=== PATIENT | female | born 1970 | race Caucasian/White ===

== ENCOUNTER → 2020-07-03 16:29 | Outpatient (CLI) | payer OTHER, MEDICAID, SELFPAY ==
[2020-07-03 17:38] LABS: Cancer Antigen 125 10.8 U/mL (0-35)
[2020-07-05 13:37] LABS: Human Epididymis Prot 4 58.9 pmol/L (0.0-63.6)
== END ==
PROVIDERS: PCP Nurse Practitioner Family; Referring Provider Obstetrics & Gynecology; Visit Provider Obstetrics & Gynecology
DX: N83.292 Other ovarian cyst, left side (principal)
CPT/HCPCS: 36415; 86304; 86305

== ENCOUNTER 2020-08-27 08:36 | Day surgery (SDC) | payer OTHER, MEDICAID, SELFPAY ==
[2020-08-21 15:23] VITALS: BMI 29.8
[2020-08-27] VITALS (8 sets, daily range): BP systolic 124–139; BP diastolic 80–92; PULSE 72–101; RESP 11–19; TEMP 35.8–36.9; O2SAT 2–97; BMI 29.2
--- NOTE | 2020-08-27 | PATH_ITS ---
[facility] Accession Number: [id number] . 01 Material submitted: . uterus - UTERUS,BILATERAL FALLOPIAN TUBES AND OVARIES . 02 Diagnosis: Uterus, Bilateral Fallopian Tubes, And Ovaries, Supracervical Hysterectomy And Bilateral Salpingo-oophorectomy: Proliferative endometrium with features of endometrial polyp. Adenomyosis. Leiomyomata, up to 0.5 cm in greatest dimension. Ovary with benign corpus luteum cysts. Contralateral ovary with no diagnostic abnormality. Bilateral fimbriated fallopian tubes with simple benign paratubal cysts. No evidence of malignancy. . . . [facility] 08/29/2020 1445 Local . 02 Electronically signed: . Otoniel Michael MD, PhD, Pathologist NPI- [id number] . 01 Gross description: . Received in formalin, labeled uterus, tubes and ovaries (bilateral), and consists of a 104-gram morcellated uterus and detached bilateral fallopian tubes and ovaries weighing 104 grams and measuring 12.0 x 9.0 x 5.5 cm in aggregate. The serosa is jenkins-pink and smooth. A cervix is not identified. The endometrium is jenkins-pink and glistening measuring 0.1 cm in thickness. The myometrium is jenkins-pink and trabeculated. There are two jenkins-white whorled leiomyomata measuring 0.2 and 0.5 cm. No areas of necrosis, hemorrhage or cystic degeneration are identified. The ovaries measuring 3.0 x 2.0 x 1.8 cm and 3.2 x 2.6 x 1.2 cm. The external surfaces are jenkins and cerebriform. Sectioning reveals a jenkins-pink ovarian stroma. One ovary has three smooth-walled cysts ranging from 0.2 to 1.0 cm. No papillary excrescences are identified. The fallopian tubes average 3.5 cm in length by 0.5 cm in diameter. The serosa is pink-purple and smooth with multiple paratubal cysts ranging from 0.1 to 0.6 cm. Sectioning reveals a jenkins mucosa and a pinpoint to stellate lumen measuring up to 0.2 cm in diameter. Computer Applications Engineer sections are submitted. . A1-A12: endometrium, entirely submitted (with roofing sales representative serosa in A12). A13: leiomyomata. A14-A15: roofing sales representative smaller ovary with cysts. A16: fallopian tube attached to a cystic ovary, central cross-sections and bisected fimbria. A17: roofing sales representative sections of larger ovary. A18: fallopian tube attached to larger ovary, central cross-sections and bisected fimbria. (EA:[id number]) /MRV 08/28/2020 1400 Local . 02 Pathologist provided ICD-10: N92.0, N83.10, N80.0, D25.9 . 02 CPT . 321903 Performed at: [facility] [address] [id number] MD Geovani Pereira MD Phone: [phone] Performed at: 02 [facility] [address] [place], [place] [id number] MD Lizy Chau MD Phone: [phone]
--- NOTE | 2020-08-27 08:59 | PM.PREOP ---
Pre-operative Note COVID-19 COVID-19 status: Negative Result date/Date tested (Pos, Neg/Pending): 08/24/20 Interval Note History & Physical reviewed/Exam performed by Physician: Yes Changes to H&P: No H&P completed within 30 days and has changed as indicated here:: 08/21/20
[2020-08-27] MEDS: LACTATED RINGERS 1,000 ML 42 ML IV ×2 (09:06→10:51)
--- NOTE | 2020-08-27 09:14 | SUR.PREOP ---
Pt able to show me her negative covid test taken 08/24/20 at [facility] on her cell phone.
[2020-08-27] MEDS: CEFAZOLIN 2 GM/100 ML FROZ.PIGGY IV (09:50)
--- NOTE | 2020-08-27 10:31 | SUR.OPER ---
Lithotomy on padded OR bed. [place] Pad Positioner under torso. Head on pillow, arms padded and tucked at sides. Legs secured in padded yellow fins stirrups.
[2020-08-27] MEDS: BUPIVACAINE 0.5% W/ EPI (PF) 30 ML VIAL INJ (10:37)
[2020-08-27] MEDS: ROPIVACAINE 0.2% PF 2 MG/ML 10ML AMP 20 ML INJ (10:52)
--- NOTE | 2020-08-27 11:26 | PM.GYNOP.1 ---
Operative Date/Time/Diagnoses Date of procedure: 08/27/20 Time of procedure: 11:26 Pre-op diagnosis: Menorrhagia Adenomyosis Complex ovarian cyst Family history of uterine and ovarian cancer Anemia requiring iron infusions Post-op diagnosis: same Procedure & Clinicians Procedure: Procedures Operation Date: 08/27/20 09:45 Actual Procedures Side Surgeon p Laparoscopic Supracervical Hysterectomy W/ Bilateral [place]-oohphorectomy. Remove labial skin tag. Martha Goodman MD Indications: Menorrhagia Adenomyosis Anemia requiring iron infusions Family history of uterine and ovarian cancer Surgeon: Martha Goodman Guidance Services Coordinator: Floresita Cunha Anesthesia Type: General and Local Operative Notes Findings: Ten week size anteverted uterus Normal tubes and ovaries Normal liver and gallbladder Normal appendix Adenomyosis of the uterus Closure Type: primary Specimen(s): left tube & ovary, right tube & ovary and uterus Applied: catheter (Removed at the end of the case) Estimated blood loss (mL): 50 Blood products transfused: none Procedure in detail: The patient was taken to the operating room where she was placed in the dorsal supine position. After adequate general endotracheal anesthesia was achieved, she was placed in the dorsal lithotomy position, and prepped and draped in the usual sterile fashion. A timeout was performed. A bivalve speculum was placed into the vagina and the anterior lip of the cervix grasped with a single-tooth tenaculum. The cervical os was sequentially dilated until the ZUMI uterine manipulator could pass easily into the endometrial cavity. The single-tooth tenaculum was removed from the anterior lip of the cervix, and the bivalve speculum was removed from the vagina. Attention was then turned to the abdomen where 6 mL of half percent Marcaine with epinephrine were injected in the umbilical fold. A 5 mm incision was made. The veress needle was placed into the peritoneal cavity, and its placement confirmed by aspiration and drop test. The veress needle was removed. A 5 mm trocar was placed without difficulty. 2 other incisions were made midway between the pubic symphysis and umbilicus after 5 mL of half percent Marcaine with epinephrine were injected. These were 5 mm incisions. Two, 5 mm trochars were placed under direct visualization. The right tube and ovary were grasped with an atraumatic grasper. Using the plasma kinetic with settings of 40 W the mesosalpinx was cauterized and cut all the way down to the cornua of the uterus. The cornua of the uterus was then grasped with an atraumatic grasper. The utero-ovarian ligaments were cauterized and cut. The round ligament and broad ligament were cauterized and cut with plasma kinetic. Hemostasis was achieved. The bladder flap was created using the plasma kinetic with cautery and cut group home across. The uterine arteries on the right side were extensively cauterized with plasma kinetic. All of this was repeated on the left side. The remainder of the bladder flap was created using the plasma kinetic, and the bladder taken down off the lower uterine segment and cervix. Using the [place], the cervix was amputated from the uterus 2 cm above the uterosacral ligaments, after the ZUMI uterine manipulator was removed from the uterus and a moistened sponge stick was placed in the vagina. There was a small amount of bleeding noted from the posterior edge of the cervix, and this was cauterized for hemostasis. The endocervical canal was extensively cauterized. 6 mL of half percent Marcaine with epinephrine were injected above the pubic symphysis. A 12mm incision was made. A 12 mm trocar was placed under direct visualization. An Endobag was placed through suprapubic trocar and the uterus, tubes and ovaries were placed into the Endobag. The uterus was morcellated in approximately 10 pieces. The tubes and ovaries were also removed from the Endobag. The Endobag was removed from the peritoneal cavity. The pelvis was copiously irrigated with warm normal saline. No bleeding was noted. 20 mL of 0.2% ropivacaine were placed over the pelvic pedicles. The instruments were removed from the abdomen. 20 cc of 0.2% ropivacaine were placed over the pedicles. The CO2 was allowed to escape. The trocars were removed from the abdomen. The suprapubic incision was closed on the fascia with 0 Vicryl. Two simple interrupted sutures with 3-0 Vicryl were placed in the subcutaneous layer. All of the incisions were closed with 4-0 Biosyn in a subcuticular fashion. Steri strips, 2x2's and op sites were placed over the incisions. The moistened sponge stick was removed from the vagina. 3 cc of 0.25% Marcaine with epinephrine were injected below the labial skin tags. Using the Bovie the skin tags were removed. Hemostasis was achieved. Sponge, lap, and instrument counts were correct x 2. The patient tolerated the procedure well, was taken to PACU in stable condition. Complications: none Post-operative Condition: stable Disposition: PACU Plan for aftercare: Home after recovery
[2020-08-27] MEDS: OXYCODONE IR 5 MG TABLET PO (11:54)
--- NOTE | 2020-08-27 12:21 | PC.NURSE ---
Addendum entered by Bg Wallis R.N. 08/27/20 14:26: Patient without concerns, and ready for discharge. Discharge instructions reviewed with patient and her boyfriend. Telehealth follow up scheduled. Patient prefers hydrocodone for pain management, Dr. Goodman notified and she will cancel oxycodone and [facility] IV dc'd intact, and patient escorted out via wheelchair. Patient instructed to call Dr. Goodman's office with questions or concerns, or to seek care for emergency. Addendum entered by Bg Wallis R.N. 08/27/20 12:50: Dr. Goodman called to verify that patient is supposed to be discharged today. Patient agrees that she would like to go home ([facility] [place] but [address] [facility] per patient request. Follow up appt. via tele health scheduled for Thursday at 1645. Patient tolerating water and po's. Patient 95% on RA. [place] urge to void, standby assistance up to void and voided 400 cc urine. Anticipate discharge when her boyfriend arrives. Original Note: Per AWAKE OVERNIGHT COUNSELOR patient to come up to room to finish recovery (related to staffing in PACU). Patient awake and oriented upon arrival to room 217. VSS. Minimal pain, but patient states its noticeable. Ice pack in place. 4 abdominal lap sites with gauze and tegaderm in place without drainage or bleeding, CDI. Lexi pad in place. Patient oriented to room and call light, and call light placed within reach.
== END 2020-08-27 14:30 | disposition home or self-care (01) ==
LOC: OR 08:49 → AC 08:49
PROVIDERS: PCP Nurse Practitioner Family; Referring Provider Nurse Practitioner Family; Visit Provider Obstetrics & Gynecology
PROC: 0UT94ZL Resection of Uterus, Supracervical, Percutaneous Endoscopic Approach (ICD-10-PCS; CPT 58542; principal; 2020-08-27 09:45)
DX: D25.9 Leiomyoma of uterus, unspecified (principal); Z80.41 Family history of malignant neoplasm of ovary; Z80.8 Family history of malignant neoplasm of other organs or systems; D64.9 Anemia, unspecified; L91.8 Other hypertrophic disorders of the skin; N83.10 Corpus luteum cyst of ovary, unspecified side; N83.8 Other noninflammatory disorders of ovary, fallopian tube and broad ligament; N80.0 Endometriosis of uterus
CPT/HCPCS: 58542; 11200; J0690; J1100; J2405; J2795; J3010

== ENCOUNTER 2025-03-06 15:36 | Emergency (ER) | payer OTHER, SELFPAY ==
[2025-03-06 15:52] VITALS: BP 169/93; PULSE 79; RESP 17; TEMP 36.6; O2SAT 99; BMI 32.8
[2025-03-06 19:21] VITALS: BP 138/80; PULSE 18; RESP 18; O2SAT 100
[2025-03-06 21:42] VITALS: O2SAT 97
[2025-03-06 21:43] VITALS: BP 168/105; PULSE 71; O2SAT 97
--- NOTE | 2025-03-06 21:48 | PC.NURSE ---
Patient states recently moved from [place] and developed redness and swelling to bilateral eyes and red streaks on either side of nose down cheeks. Has been taking claritin for last three days without change. States in the morning face is more swollen.
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
[2025-03-07] MEDS: ERYTHROMYCIN OPHTH 1 GM OINT 1 APPLIC EYE-BOTH (00:22)
[2025-03-07 00:35] VITALS: BP 158/64; PULSE 72; RESP 16; O2SAT 100
== END 2025-03-07 00:37 | disposition home or self-care (01) ==
PROVIDERS: Emergency Provider Emergency Medicine
DX: L50.9 Urticaria, unspecified (principal); H10.10 Acute atopic conjunctivitis, unspecified eye
CPT/HCPCS: 99282

== ENCOUNTER 2025-03-17 08:50 | Emergency (ER) | payer OTHER, SELFPAY ==
[2025-03-17] VITALS (12 sets, daily range): BP systolic 100–151; BP diastolic 66–99; PULSE 70–90; RESP 20; TEMP 37; O2SAT 93–100; BMI 33.0
--- NOTE | 2025-03-17 09:17 | PC.NURSE ---
Pt reports numbness and tingling to anterior right leg. Has pain to low back and sacrum. Hot pack provided to pt for comfort.
--- NOTE | 2025-03-17 10:29 | DI.CT.S_ITS ---
PROCEDURE: CT LUMBAR SPINE WO CON INDICATIONS: lumbar radiculopathy (RLE) new TECHNIQUE: Noncontrast 3 mm thick sections acquired from the T12 level to the sacrum. Sagittal and coronal reformats were constructed. For radiation dose reduction, the following was used: automated exposure control. COMPARISON: None. FINDINGS: Image quality: Excellent. Bones: There is normal bony alignment. No acute vertebral body compression fractures. No suspicious lytic or blastic bony lesions. No pars defects. Minimal disc bulges at L3-4, L4-5 and L5-S1. No significant foraminal narrowing. No significant spinal stenosis. Soft tissues: No retroperitoneal masses or hematomas. Visualized aorta is normal in caliber. IMPRESSION: Minimal scattered disc bulges without appreciable significant spinal stenosis or foraminal narrowing. No acute finding. Dictated by: Cherri Rincon M.D. on 03/17/2025 at 11:59 Approved by: Cherri Rincon M.D. on 03/17/2025 at 12:01
--- NOTE | 2025-03-17 10:32 | ED.BACK ---
HPI - Back Pain/Injury General Chief Complaint: Back Pain/Injury Stated Complaint: pinched nerve in back? Time Seen by Provider: 03/17/25 10:21 Source: patient History of Present Illness HPI Narrative: 54-year-old female with history of chronic low back pain she attributes to arthritis presents to the ED for evaluation of several days of worsening lower back pain and numbness and tingling over the top of her right thigh. Denies any recent history of trauma. No prior history of back surgeries. Reports some urinary frequency without incontinence. No numbness in the groin area but does report some pain along the inside of her right thigh. No fever. Related Data Home Medications Medication Instructions Recorded Confirmed alprazolam 0.5 mg tablet 0.5 mg PO DAILY 07/03/20 10/01/20 amlodipine 2.5 mg tablet 2.5 mg PO DAILY 07/03/20 10/01/20 atorvastatin 20 mg tablet 20 mg PO DAILY 07/03/20 03/06/25 escitalopram oxalate 20 mg tablet 20 mg PO DAILY 07/03/20 03/06/25 albuterol sulfate 90 mcg/actuation 2 puff inhalation 6XD PRN Wheezing 08/27/20 10/01/20 aerosol inhaler hydroxyzine pamoate 25 mg capsule 25 mg PO BEDTIME 10/01/20 10/01/20 oxcarbazepine 300 mg tablet 300 mg PO DAILY 03/06/25 03/06/25 Previous Rx's Medication Instructions Recorded estradiol 0.0375 mg/24 hr 1 patch transdermal 2XW #8 ea 10/01/20 semiweekly transdermal patch (Vivelle-Dot) erythromycin 5 mg/gram (0.5 %) eye 1 cm EYE-BOTH Q4HRWA #3.5 grams 03/07/25 ointment prednisone 20 mg tablet 40 mg (2 x 20 mg) PO DAILY #10 tabs 03/07/25 lidocaine 5 % topical patch 1 patch topical DAILY #15 ea 03/17/25 methocarbamol 500 mg tablet 500 mg PO Q8H PRN pain #10 tabs 03/17/25 Allergies Allergy/AdvReac Type Severity Reaction Status Date / Time ibuprofen Allergy Anaphylaxis Verified 03/06/25 15:54 Review of Systems Review of Systems Narrative: Negative except as stated in HPI Patient History Medical History Endometrial hyperplasia Family history of uterine cancer Family history of ovarian cancer Social History household members: significant other Smoking Status: Never smoker alcohol intake: never Smoking Status: Never smoker Exam Initial Vital Signs Initial Vital Signs: Vital Signs Pulse Rate 90 03/17/25 08:57 Pulse Oximetry 96 03/17/25 08:57 Constitutional: 54-year-old female resting in her chair, leaning to the right side, appears uncomfortable in no acute distress Head: NCAT Cardiovascular: RRR, no murmur or rub Pulmonary: CTA bilaterally, no respiratory distress Musculoskeletal: There is discomfort across the lumbar spine in the midline as well as the right para-lumbar and right buttocks. There is slight decreased strength with flexion of the right hip however 5/5 strength with extension/flexion of the knee and dorsi and plantar flexion. There is decreased sensation to light touch over the anterior right thigh and medial right thigh as compared to the left. 2+ patellar reflex bilaterally. Extremities: No LE edema Skin: warm and dry, no diaphoresis Neurological: Alert and oriented x3 Course Orders Ordered: Discontinued Medications Acetaminophen (Acetaminophen 325 Mg Tablet) 975 mg PO NOW ONE Stop: 03/17/25 10:31 Last Admin: 03/17/25 10:40 Dose: 975 mg Documented By: Ketorolac Tromethamine (Ketorolac 30 Mg/Ml Vial) 30 mg IM NOW ONE Stop: 03/17/25 10:31 Last Admin: 03/17/25 10:40 Dose: 30 mg Documented By: Lidocaine (Lidocaine 5% Patch) 1 each TOP NOW ONE Stop: 03/17/25 10:46 Last Admin: 03/17/25 10:56 Dose: 1 each Documented By: Methocarbamol (Methocarbamol 500 Mg Tablet) 750 mg PO NOW ONE Stop: 03/17/25 10:31 Last Admin: 03/17/25 10:41 Dose: 750 mg Documented By: Prednisone (Prednisone 20 Mg Tablet) 60 mg PO NOW ONE Stop: 03/17/25 10:31 Last Admin: 03/17/25 10:40 Dose: 60 mg Documented By: Vital Signs Vital signs: Vital Signs - 8 hr 03/17/25 08:57 03/17/25 08:58 03/17/25 09:00 Temperature 98.6 F Pulse Rate 90 87 90 Respiratory Rate 20 Blood Pressure 151/99 H Pulse Oximetry 96 100 95 Oxygen Delivery Method Room Air 03/17/25 09:15 03/17/25 09:15 03/17/25 09:30 Temperature Pulse Rate 86 Respiratory Rate Blood Pressure 144/83 H 124/79 Pulse Oximetry 96 Oxygen Delivery Method 03/17/25 09:30 03/17/25 10:00 03/17/25 10:00 Temperature Pulse Rate 74 77 Respiratory Rate Blood Pressure 136/92 H Pulse Oximetry 93 95 Oxygen Delivery Method 03/17/25 10:30 03/17/25 10:30 Temperature Pulse Rate 85 Respiratory Rate Blood Pressure 139/91 H Pulse Oximetry 93 Oxygen Delivery Method MDM - Back Pain/Injury MDM Narrative Medical decision making narrative: History and exam I think is most consistent with lumbar radiculopathy syndrome. Lower extremities are well-perfused. Do not suspect ischemic etiology of paresthesias. No lower extremity edema the concerning for DVT. She has some urinary frequency without incontinence. We will check postvoid residual to assess for retention although no saddle anesthesia and aside from some mild weakness with flexion of the right hip, she has equal strength. Offered IM Toradol, oral Robaxin, oral Tylenol, topical lidocaine. We will send for CT of the lumbar spine to further characterize. PVR 52 - no urinary retention. Bones: There is normal bony alignment. No acute vertebral body compression fractures. No suspicious lytic or blastic bony lesions. No pars defects. Minimal disc bulges at L3-4, L4-5 and L5-S1. No significant foraminal narrowing. No significant spinal stenosis. I rechecked the patient is feeling much improved, smiling. We discussed multiple pain management for low back pain this scenario. Did offer prescription for muscle relaxer, patient requests to try different NSAID such as Toradol and 5% lidocaine patches as well. Will refer to PCP for follow-up and further workup. Pt may benefit from referral to PT. Return precuations discussed and provided prior to discharge. Discharge Plan Departure Patient Disposition: Home Clinical Impression: Bulging lumbar disc Instructions: DI for Low Back Pain Activity Restrictions/Additional Instructions: I am glad that you are feeling better. Your CT scan showed multiple areas of bulging discs in the lumbar spine. I think this is likely causing the low back pain and numbness and tingling in your leg the ear experiencing. Please make an appointment with your family doctor regarding your pain and pain management. For now, for pain please take Toradol as prescribed, acetaminophen 1000 mg every 6 hours. You may find topical therapy such as heat/ice, menthol, lidocaine or diclofenac ointment helpful. You may use muscle relaxer as prescribed as well. Return to the emergency department for new symptoms such as loss of bladder control, numbness in the groin area, weakness in one leg, or new symptoms that are concerning to you Prescriptions: New lidocaine 5 % adhesive patch,medicated 1 patch topical DAILY Qty: 15 0RF Rx Instructions: leave on most painful area for up to 12 hrs methocarbamol 500 mg tablet 500 mg PO Q8H PRN (Reason: pain) Qty: 10 0RF No Action alprazolam 0.5 mg tablet 0.5 mg PO DAILY escitalopram oxalate 20 mg tablet 20 mg PO DAILY atorvastatin 20 mg tablet 20 mg PO DAILY amlodipine 2.5 mg tablet 2.5 mg PO DAILY hydroxyzine pamoate 25 mg capsule 25 mg PO BEDTIME estradiol [Vivelle-Dot] 0.0375 mg/24 hr patch semiweekly 1 patch transdermal 2XW Qty: 8 11RF Rx Instructions: apply 1 patch for 3 days alternating with 1 patch for 4 days each week albuterol sulfate 90 mcg/actuation Hfa Aerosol Inhaler 2 puff INHALATION 6XD PRN (Reason: Wheezing) oxcarbazepine 300 mg tablet 300 mg PO DAILY prednisone 20 mg tablet 40 mg PO DAILY Qty: 10 0RF erythromycin 5 mg/gram (0.5 %) ointment 1 cm EYE-BOTH Q4HRWA Qty: 3.5 0RF Referrals: Miscellaneous,Doctor, MD [Primary Care Provider] - Stand Alone Forms: Patient Portal/API/Survey
[2025-03-17] MEDS: KETOROLAC 30 MG/ML VIAL IM (10:40)
[2025-03-17] MEDS: predniSONE 20 MG TABLET 60 MG PO (10:40)
[2025-03-17] MEDS: ACETAMINOPHEN 325 MG TABLET 975 MG PO (10:40)
[2025-03-17] MEDS: methocarbamoL 500 MG TABLET 750 MG PO (10:41)
[2025-03-17] MEDS: LIDOCAINE 5% PATCH 1 EACH TOP (10:56)
== END 2025-03-17 12:52 | disposition home or self-care (01) ==
PROVIDERS: Emergency Provider Student in an Organized Health Care Education/Training Program
DX: M51.369 Other intervertebral disc degeneration, lumbar region without mention of lumbar back pain or lower extremity pain (principal); R20.2 Paresthesia of skin
CPT/HCPCS: 51798; 72131; 96372; 99284; J1885

== ENCOUNTER → 2025-07-07 08:38 | Outpatient (CLI) | payer OTHER, SELFPAY ==
[2025-07-07 18:41] LABS: Add Manual Diff / Slide Review NO; Hematocrit 38.2 % (36-46); Hemoglobin 13.3 g/dL (12.0-16.0); Lymphocytes Absolute Auto 1600 /uL (1100-4500); Mean Corpuscular HGB Conc 34.8 % (30-36); Mean Corpuscular Hemoglobin 28.0 PG (26-34); Mean Corpuscular Volume 80.4 fL (80-100); Platelet Count 260 X10^3/uL (150-400)
[2025-07-07 19:05] LABS: Alanine Aminotransferase 27 IU/L (<35); Albumin 4.1 g/dL (3.5-5.0); Albumin Globulin Ratio 1.6 (1.0-2.8); Alkaline Phosphatase 77 U/L (38-126); Blood Urea Nitrogen 13 mg/dL (7-17); Calcium 9.1 mg/dL (8.4-10.2); Carbon Dioxide 27 mmol/L (22-32); Chloride 107 mmol/L (98-107); Cholesterol 171 mg/dL (140-199); Estimated Glomerular Filt Rate > 60 mL/min (>60); Globulin 2.6 g/dL (1.7-4.1); Glucose 98 mg/dL (70-99); HDL Cholesterol 39 mg/dL (40-60); HEMOLYSIS < 15 (0-50); Potassium 4.1 mmol/L (3.4-5.1); Sodium 140 mmol/L (137-145); Total Protein 6.7 g/dL (6.3-8.2); Triglycerides 199 mg/dL (35-150)
[2025-07-07 19:35] LABS: TSH w/ Reflex to FT4 1.97 uIU/mL (0.47-4.68)
[2025-07-08 16:37] LABS: HIV 1 & 2 Ab/Ag 4th Gen Combo NEGATIVE (NEGATIVE); Hep C Virus Ab w/Reflex Quant NEGATIVE s/c (NEGATIVE)
== END ==
PROVIDERS: PCP Physician Assistant; Visit Provider Physician Assistant
DX: Z13.6 Encounter for screening for cardiovascular disorders (principal); Z11.4 Encounter for screening for human immunodeficiency virus [HIV]; Z11.59 Encounter for screening for other viral diseases; I10 Essential (primary) hypertension; F32.A Depression, unspecified
CPT/HCPCS: 80053; 80061; 84443; 85025; 86803; 87389